=== PATIENT | male | born 1955 | race Caucasian/White ===

== ENCOUNTER → 2017-01-09 | Outpatient (CLI) | payer BC | LOC: CIMAGING 15:27 | PROVIDERS: ATTEND Family Medicine | DX: J43.9 Emphysema, unspecified (principal); F17.210 Nicotine dependence, cigarettes, uncomplicated | CPT/HCPCS: 71020-PO ==

== ENCOUNTER → 2017-04-23 | Outpatient (CLI) | payer BC | LOC: CIMAGING 09:23 | PROVIDERS: ATTEND Family Medicine | DX: R94.39 Abnormal result of other cardiovascular function study (principal); J40 Bronchitis, not specified as acute or chronic; J44.9 Chronic obstructive pulmonary disease, unspecified; I10 Essential (primary) hypertension | CPT/HCPCS: 71046-PO ==

== ENCOUNTER → 2017-05-08 | Outpatient (CLI) | payer BC | LOC: CIMAGING 09:09 | PROVIDERS: ATTEND Family Medicine | DX: J43.9 Emphysema, unspecified (principal); I25.10 Atherosclerotic heart disease of native coronary artery without angina pectoris; Q27.8 Other specified congenital malformations of peripheral vascular system; N28.9 Disorder of kidney and ureter, unspecified | CPT/HCPCS: 71250-PO ==

== ENCOUNTER → 2017-05-16 | Outpatient (CLI) | payer BC | LOC: CIMAGING 08:33 | PROVIDERS: ATTEND Family Medicine | DX: K76.0 Fatty (change of) liver, not elsewhere classified (principal); N28.1 Cyst of kidney, acquired; R16.2 Hepatomegaly with splenomegaly, not elsewhere classified | CPT/HCPCS: 76700-PO ==